=== PATIENT | male | born 1965 | race Caucasian/White ===

== ENCOUNTER 2021-02-15 23:51 | Inpatient (IN) ==
[2021-02-16 01:29] LABS: ABS Eosinophils 0.1 10^3/ul (0-0.6); ABS Monocytes 0.5 10^3/ul (0-0.8); ABS Neutrophils 6.5 10^3/ul (1.5-7.7); Eosinophil % 1.6 %; Hematocrit 42 % (42-52); Hemoglobin 14.5 g/dL (14.0-18.0); Lymphocyte % 21.7 %; Mean Corpuscular HGB Conc 35 g/dL (31-36); Mean Corpuscular Hemoglobin 32 pg (27-31); Mean Corpuscular Volume 92 fL (80-94); Mean Platelet Volume 6.9 fL (7.4-10.4); Platelet Count 250 10^3/uL (150-450); Red Blood Count 4.58 10^6 /uL (4.18-5.48); Red Cell Distribution Width 14 % (10-15); White Blood Count 9.1 10^3/uL (3.5-10.8)
[2021-02-16 01:32] LABS: Urine Appearance Clear; Urine Bilirubin Negative (Negative); Urine Blood Negative (Negative); Urine Color Straw; Urine Glucose Negative (Negative); Urine Ketones Negative (Negative); Urine Nitrite Negative (Negative); Urine Protein Negative (Negative); Urine Specific Gravity 1.004 (1.002-1.030); Urine Urobilinogen Negative (Negative)
[2021-02-16 01:48] LABS: ALT 16 U/L (7-52); AST 20 U/L (13-39); Acetaminophen < 15 mcg/mL; Albumin 3.9 g/dL (3.2-5.2); Albumin/Globulin Ratio 1.3 (1-3); Alcohol, S < 13 mg/dL (<13); Alkaline Phosphatase 85 U/L (35-149); Anion Gap 7 mmol/L (2-11); Blood Urea Nitrogen 6 mg/dL (6-24); CO2 Carbon Dioxide 28 mmol/L (22-32); Calcium 9.2 mg/dL (8.6-10.3); Chloride 104 mmol/L (101-111); Globulin 3.1 g/dL (2-4); Glucose 87 mg/dL (70-100); Potassium 3.9 mmol/L (3.5-5.0); Salicylate < 2.50 mg/dL (<30); Sodium 139 mmol/L (135-145)
[2021-02-16 02:02] LABS: TSH Ultra Thyroid Stim Horm 4.72 mcIU/mL (0.34-5.60)
[2021-02-16 02:06] LABS: Urine Benzodiazepine Screen None Detected (None Detect); Urine Cannabinoids Screen None Detected (None Detect); Urine Opiates Screen None Detected (None Detect)
[2021-02-16] MEDS ORDERED: Al Hydrox/Mg Hydrox/Simet LIQ 30 ML UDC PO PRN (05:41)
[2021-02-16 05:51] LABS: Rapid COVID-19 Molecular Undetected (Undetected)
[2021-02-16] MEDS: Vitamin THERAPEUTIC TAB PO SCH (13:04)
[2021-02-17] MEDS: Vitamin THERAPEUTIC TAB PO SCH (10:07)
[2021-02-18] MEDS: Vitamin THERAPEUTIC TAB PO SCH (08:08)
[2021-02-18] MEDS: Saline NASAL SPRAY 0.65% BTL BOTH NARES SCH (21:30)
[2021-02-19] MEDS: Vitamin THERAPEUTIC TAB PO SCH (09:26)
[2021-02-19] MEDS: Saline NASAL SPRAY 0.65% BTL BOTH NARES SCH (09:27)
[2021-02-19] MEDS ORDERED: Lurasidone 120 mg TAB PO SCH (20:00)
== END 2021-02-19 13:30 | disposition home or self-care (01) | DRG 750 ==
LOC: ED 23:51 → BSU 02-16 05:18
PROVIDERS: ADMIT Psychiatry & Neurology Psychiatry; ATTEND Psychiatry & Neurology Psychiatry

== ENCOUNTER 2023-06-19 17:26 | Inpatient (IN) ==
[2023-06-19 18:20] LABS: ABS Eosinophils 0.2 10^3/uL (0.0-0.5); ABS Monocytes 0.6 10^3/uL (0.0-1.1); ABS Neutrophils 5.5 10^3/uL (1.5-7.6); ABS Nucleated RBC 0.01 10^3/ul; Eosinophil % 1.9 %; Hematocrit 41.2 % (38-53); Hemoglobin 14.5 g/dL (13.2-16.3); Lymphocyte % 31.8 %; Mean Corpuscular Hemoglobin 32.3 pg (27-33); Mean Corpuscular Hgb Conc 35.3 g/dL (31-36); Mean Corpuscular Volume 91.4 fL (80-97); Mean Platelet Volume 7.1 fL (7.5-11.2); Nucleated Red Blood Cells % 0.1 %/100WBC (0.0-0.8); Platelet Count 191 10^3/uL (150-450); Red Cell Distribution Width 12.9 % (12-17); White Blood Count 9.4 10^3/uL (3.6-10.2)
[2023-06-19 18:37] LABS: ALT 23 U/L (7-52); AST 24 U/L (13-39); Albumin 4.3 g/dL (3.2-5.2); Albumin/Globulin Ratio 1.6 (1-3); Alkaline Phosphatase 84 U/L (35-149); Anion Gap 7 mmol/L (2-16); Blood Urea Nitrogen 10 mg/dL (6-24); CO2 Carbon Dioxide 28 mmol/L (22-32); Calcium 9.5 mg/dL (8.6-10.3); Chloride 106 mmol/L (101-111); Creatinine, Serum 0.89 mg/dL (0.67-1.17); Globulin 2.7 g/dL (2-4); Glucose 92 mg/dL (70-100); Potassium 3.6 mmol/L (3.5-5.0); Sodium 141 mmol/L (135-145); Total Bilirubin 0.4 mg/dL (0.2-1.0); eGFR CKD-EPI 99.3 (>60)
[2023-06-19 18:43] LABS: High Sens Troponin Baseline < 3 pg/mL (<20)
[2023-06-19 18:48] LABS: Acetaminophen < 15 mcg/mL; Alcohol, S < 13 mg/dL (<13); Salicylate < 2.50 mg/dL (<30)
[2023-06-19 19:03] LABS: TSH Ultra Thyroid Stim Horm 5.03 mcIU/mL (0.34-5.60)
[2023-06-19 19:59] LABS: High Sensitivity Troponin 1 Hr 3 pg/mL (<20)
[2023-06-19] MEDS ORDERED: Al Hydrox/Mg Hydrox/Simet LIQ 30 ML UDC PO PRN (22:05)
[2023-06-19 22:14] LABS: Urine Benzodiazepine Screen None Detected (None Detect); Urine Cannabinoids Screen None Detected (None Detect); Urine Opiates Screen None Detected (None Detect)
[2023-06-20] MEDS: Vitamin THERAPEUTIC TAB PO SCH (09:32)
[2023-06-20] MEDS: Senna TAB 8.6 mg TAB PO SCH (13:03)
[2023-06-21 08:28] LABS: HDL Cholesterol 56.8 mg/dL
[2023-06-22 11:18] VITALS: BP 116/78
[2023-06-22] MEDS: COVID VAC 23-24(12+)(Moderna) SYR 0.5 ML IM ONE (12:45)
[2023-06-23 21:10] LABS: Clozapine 177 ng/mL (350-600); Clozapine & Norclozapine Level 266 ng/mL; Norclozapine 89 ng/mL
== END 2023-06-22 13:05 | disposition home or self-care (01) | DRG 885 ==
LOC: ED 17:26 → EDHOLD 22:05 → BSU 06-20 07:58
PROVIDERS: ADMIT Psychiatry & Neurology Psychiatry; ATTEND Psychiatry & Neurology Psychiatry